=== PATIENT | male | born 1970 | race Caucasian/White ===

== ENCOUNTER 2020-10-20 09:44 | Emergency (ER) | payer MEDICAID ==
[~2020-10-20] VITALS: Ht 170.2 cm; Wt 62.7 kg
[2020-10-20] MEDS ORDERED: proCHLORperazine 10 MG/2 ml inj IV ONE (09:55)
[2020-10-20] MEDS ORDERED: normal saline 1000ML IV soln IVB ONE (09:55)
[2020-10-20 10:09] LABS: BASOPHILS # (AUTO) 0.1 X10'3 (0-0.2); BASOPHILS % (AUTO) 0.6 % (0-1); EOSINOPHILS % (AUTO) 0.1 % (0-6); HEMATOCRIT 41.9 % (42.0-52.0); HEMOGLOBIN 14.1 g/dl (14.0-17.9); LYMPHOCYTES % (AUTO) 8.8 % (21-51); MEAN CORPUSCULAR HEMOGLOBIN 30.6 PG (27.0-31.0); MEAN CORPUSCULAR HGB CONC 33.8 g/dL (33.0-36.5); MEAN CORPUSCULAR VOLUME 90.5 FL (78-98); MEAN PLATELET VOLUME 7.1 FL (7.4-10.4); MONOCYTES # (AUTO) 0.9 X10'3 (0-0.9); MONOCYTES % (AUTO) 8.1 % (2-12); NEUTROPHILS # (AUTO) 9.4 X10'3 (1.8-7.7); NEUTROPHILS % (AUTO) 82.4 % (42-75); PLATELET COUNT 447 X10'3 (140-440); RED BLOOD COUNT 4.63 X10'6 (4.70-6.10); RED CELL DISTRIBUTION WIDTH 13.8 % (11.5-14.5); WHITE BLOOD COUNT 11.4 X10'3 (4.5-11.0)
[2020-10-20 10:20] LABS: ALANINE AMINOTRANSFERASE 16 U/L (12-78); ALBUMIN 3.9 G/DL (3.4-5.0); ALBUMIN/GLOBULIN RATIO 0.9 (1.1-1.5); ALKALINE PHOSPHATASE 102 IU/L (46-116); ANION GAP 14 (8-16); ASPARTATE AMINO TRANSFERASE 13 U/L (10-37); BILIRUBIN,TOTAL 0.5 MG/DL (0.1-1.0); BLOOD UREA NITROGEN 28 MG/DL (7-18); BUN/CREATININE RATIO 19.2 (5.4-32.0); CALCIUM 9.6 MG/DL (8.5-10.1); CHLORIDE 96 MMOL/L (99-107); CREATININE 1.46 MG/DL (0.60-1.10); GLUCOSE 274 MG/DL (70-104); MAGNESIUM 2.3 MG/DL (1.5-2.4); POTASSIUM 3.8 MMOL/L (3.5-5.1); SODIUM 134 MMOL/L (135-145); TOTAL CARBON DIOXIDE 24.4 MMOL/L (24-32); TOTAL PROTEIN 8.1 G/DL (6.4-8.2); eGFR 51 ML/MIN
[2020-10-20] MEDS ORDERED: PROC25SU31 RC (11:32)
--- NOTE | 2020-10-20 12:15 | NUR ---
discussed pt's c/o nausea and pain with BELLA Salmon. New order for Zofran 4mg and Toradol 15mg received.
[2020-10-20] MEDS ORDERED: ketorolac trometh. 30mg/ml inj. IV ONE (12:20)
[2020-10-20] MEDS ORDERED: ondansetron/PF 4mg/2ml inj IV ONE (12:20)
[2020-10-20] MEDS ORDERED: ondansetron 4mg rapidly disintigrating tab PO ONE (12:30)
[2020-10-20] MEDS ORDERED: mag hydrox/Alum hydrox/simeth 30ml oral suspension PO ONE (12:40)
[2020-10-20] MEDS ORDERED: LIDOcaine Viscous 15ml cup MM ONE (12:40)
[2020-10-20] MEDS ORDERED: normal saline 1000ml 1,000 ML IV ONE (12:40)
[2020-10-20 14:54] VITALS: BP 193/126
== END 2020-10-20 14:53 | disposition home or self-care (01) ==
LOC: ER 09:45
DX: E10.43 Type 1 diabetes mellitus with diabetic autonomic (poly)neuropathy (principal); K31.84 Gastroparesis; Z79.899 Other long term (current) drug therapy
CPT/HCPCS: 36415; 80053; 82948; 83735; 85025; 93005; 96361; 96374; 96375; 99284; J0780; J1885; J2405; J7030

== ENCOUNTER 2020-11-25 10:00 | Emergency (ER) | payer MEDICAID ==
[~2020-11-25] VITALS: Ht 170.2 cm; Wt 68.2 kg
[2020-11-25] MEDS ORDERED: normal saline 1000ML IV soln IVB ONE (10:20)
[2020-11-25] MEDS ORDERED: proCHLORperazine 10 MG/2 ml inj IV ONE (10:20)
[2020-11-25 10:44] LABS: BASOPHILS % (AUTO) 0.3 % (0-1); EOSINOPHILS % (AUTO) 0 % (0-6); HEMATOCRIT 43.5 % (42.0-52.0); HEMOGLOBIN 14.7 g/dl (14.0-17.9); LYMPHOCYTES # (AUTO) 0.5 X10'3 (1.1-4.8); LYMPHOCYTES % (AUTO) 3.4 % (21-51); MEAN CORPUSCULAR HEMOGLOBIN 30.9 PG (27.0-31.0); MEAN CORPUSCULAR HGB CONC 33.7 g/dL (33.0-36.5); MEAN CORPUSCULAR VOLUME 91.7 FL (78-98); MEAN PLATELET VOLUME 7.5 FL (7.4-10.4); MONOCYTES # (AUTO) 0.6 X10'3 (0-0.9); NEUTROPHILS # (AUTO) 13.4 X10'3 (1.8-7.7); NEUTROPHILS % (AUTO) 92.3 % (42-75); PLATELET COUNT 452 X10'3 (140-440); RED BLOOD COUNT 4.75 X10'6 (4.70-6.10); WHITE BLOOD COUNT 14.5 X10'3 (4.5-11.0)
[2020-11-25 10:47] LABS: ALANINE AMINOTRANSFERASE 15 U/L (12-78); ALBUMIN 4.2 G/DL (3.4-5.0); ALKALINE PHOSPHATASE 126 IU/L (46-116); ANION GAP 17 (8-16); ASPARTATE AMINO TRANSFERASE 14 U/L (10-37); BILIRUBIN,TOTAL 0.6 MG/DL (0.1-1.0); BLOOD UREA NITROGEN 35 MG/DL (7-18); BUN/CREATININE RATIO 22.6 (5.4-32.0); CALCIUM 10.1 MG/DL (8.5-10.1); CHLORIDE 94 MMOL/L (99-107); CREATININE 1.55 MG/DL (0.60-1.10); GLUCOSE 438 MG/DL (70-104); LIPASE < 50 U/L (73-393); POTASSIUM 4.3 MMOL/L (3.5-5.1); SODIUM 135 MMOL/L (135-145); TOTAL PROTEIN 8.5 G/DL (6.4-8.2); eGFR 47 ML/MIN
[2020-11-25] MEDS ORDERED: insulin regular, human 10 units/0.1 ml syringe IV ONE (11:00)
--- NOTE | 2020-11-25 11:29 | NUR ---
PA NOTIFIED OF PTS BP, C/O ABD PAIN, NEW ORDERS RECEIVED
[2020-11-25] MEDS: morphine 2 MG/ML inj. syringe IV PRN ×2 (11:53→12:13)
[2020-11-25] MEDS ORDERED: cloNIDine 0.1 mg tablet PO ONE (11:55)
[2020-11-25] MEDS ORDERED: normal saline 1000ml 1,000 ML IV ONE (12:00)
[2020-11-25] MEDS ORDERED: insulin regular, human 10 units/0.1 ml syringe SQ ONE (12:00)
[2020-11-25 12:48] VITALS: BP 169/87
[2020-11-25] MEDS ORDERED: AMLO2.5T2 PO (12:55)
== END 2020-11-25 13:18 | disposition home or self-care (01) ==
LOC: ER 10:00
DX: E11.65 Type 2 diabetes mellitus with hyperglycemia (principal); I10 Essential (primary) hypertension; R11.2 Nausea with vomiting, unspecified; Z79.899 Other long term (current) drug therapy
CPT/HCPCS: 36415; 80053; 82948; 83690; 85025; 96361; 96372; 96374; 96375; 99285; J0780; J1815; J2270; J7030

== ENCOUNTER 2021-01-06 22:50 | Emergency (ER) | payer MEDICAID ==
[~2021-01-06] VITALS: Ht 170.2 cm; Wt 68.2 kg
[2021-01-06 23:19] LABS: BASOPHILS # (AUTO) 0.1 X10'3 (0-0.2); BASOPHILS % (AUTO) 0.5 % (0-1); EOSINOPHILS % (AUTO) 0 % (0-6); HEMATOCRIT 40.3 % (42.0-52.0); HEMOGLOBIN 13.8 g/dl (14.0-17.9); LYMPHOCYTES # (AUTO) 0.7 X10'3 (1.1-4.8); LYMPHOCYTES % (AUTO) 6.1 % (21-51); MEAN CORPUSCULAR HEMOGLOBIN 30.9 PG (27.0-31.0); MEAN CORPUSCULAR HGB CONC 34.3 g/dL (33.0-36.5); MEAN CORPUSCULAR VOLUME 90.2 FL (78-98); MEAN PLATELET VOLUME 7.2 FL (7.4-10.4); MONOCYTES # (AUTO) 0.5 X10'3 (0-0.9); NEUTROPHILS # (AUTO) 9.6 X10'3 (1.8-7.7); NEUTROPHILS % (AUTO) 88.4 % (42-75); PLATELET COUNT 333 X10'3 (140-440); RED BLOOD COUNT 4.47 X10'6 (4.70-6.10); RED CELL DISTRIBUTION WIDTH 13.6 % (11.5-14.5); WHITE BLOOD COUNT 10.9 X10'3 (4.5-11.0)
[2021-01-06 23:35] LABS: ALANINE AMINOTRANSFERASE 18 U/L (12-78); ALBUMIN 3.8 G/DL (3.4-5.0); ALKALINE PHOSPHATASE 88 IU/L (46-116); ANION GAP 17 (8-16); ASPARTATE AMINO TRANSFERASE 13 U/L (10-37); BILIRUBIN,TOTAL 0.7 MG/DL (0.1-1.0); BLOOD UREA NITROGEN 24 MG/DL (7-18); BUN/CREATININE RATIO 19.4 (5.4-32.0); CALCIUM 8.7 MG/DL (8.5-10.1); CHLORIDE 95 MMOL/L (99-107); CREATININE 1.24 MG/DL (0.60-1.10); GLUCOSE 341 MG/DL (70-104); LIPASE < 50 U/L (73-393); SODIUM 134 MMOL/L (135-145); TOTAL CARBON DIOXIDE 22.4 MMOL/L (24-32); TOTAL PROTEIN 7.7 G/DL (6.4-8.2); eGFR 61 ML/MIN
[2021-01-06] MEDS ORDERED: normal saline 1000ml 1,000 ML IV ONE (23:45)
[2021-01-06] MEDS ORDERED: ondansetron/PF 4mg/2ml inj IV ONE (23:45)
[2021-01-06] MEDS ORDERED: insulin regular, human 10 units/0.1 ml syringe IV ONE (23:45)
[2021-01-06] MEDS ORDERED: famotidine/PF 10 mg/ml inj IV ONE (23:50)
[2021-01-06] MEDS ORDERED: pantoprazole 40 MG vial IV ONE (23:50)
[2021-01-07 00:23] LABS: TROPONIN I < 0.04 NG/ML (0.0-0.05)
[2021-01-07] MEDS ORDERED: diphenhydrAMINE 50 mg/ml inj IV ONE (00:50)
[2021-01-07] MEDS ORDERED: metoclopramide 5 mg/ml inj IV ONE (00:50)
[2021-01-07] MEDS ORDERED: proCHLORperazine 10 MG/2 ml inj IV ONE (00:50)
[2021-01-07] MEDS ORDERED: haloperidol lactate 5mg/ml inj IM ONE (02:50)
[2021-01-07 03:51] VITALS: BP 183/97
== END 2021-01-07 03:53 | disposition home or self-care (01) ==
LOC: ER 22:51
DX: R11.2 Nausea with vomiting, unspecified (principal); R10.84 Generalized abdominal pain; E11.9 Type 2 diabetes mellitus without complications
CPT/HCPCS: 36415; 74176; 80053; 82948; 83690; 84145; 84484; 85025; 96361; 96372; 96374; 96375; 99285; C9113; J0780; J1200; J1630; J1815; J2405; J2765; J3490; J7030